=== PATIENT | female | born 1945 | race Caucasian/White ===

== ENCOUNTER → 2016-05-17 | Outpatient (CLI) | payer OTHER | LOC: BHFA 14:30 | PROVIDERS: ATTEND Internal Medicine Cardiovascular Disease | DX: I47.1 Supraventricular tachycardia (principal) ==

== ENCOUNTER 2016-06-11 06:59 | Observation (INO) | payer OTHER ==
[2016-06-11] MEDS ORDERED: MIDAZOLAM 2 MG/2 ML VIAL IVP ONE (07:02)
[2016-06-11] MEDS ORDERED: NS 1,000 ML IV ONE (07:02)
--- NOTE | 2016-06-11 07:25 | CPEKG ---
Heart Rate: 60 RR Interval: 1000 P-R Interval: 164 QRSD Interval: 118 QT Interval: 444 QTC Interval: 444 P [place]: 61 QRS [place]: 65 T Wave [place]: -1 EKG Severity - ABNORMAL ECG - EKG Impression: SINUS RHYTHM EKG Impression: Incomplete RBBB EKG Impression: Nonspecific inferolateral STT changes Electronically Signed By: Carlos Vincent 11-Jun-2016 14:42:06
[2016-06-11 07:46] LABS: % IMMATURE GRANULYOCYTES 0.3 % (0.0-1.1); ABSOLUTE IMMATURE GRANULOCYTES 0.02 10^3/uL (0.00-0.10); ADD DIFF? NO; ADD MORPH? NO; ADD SCAN? NO; ATYPICAL LYMPHOCYTE FLAG 10 (0-99); FRAGMENT RBC FLAG 0 (0-99); HEMATOCRIT 39.5 % (38.0-47.0); HEMOGLOBIN 13.4 g/dL (12.6-16.3); LEFT SHIFT FLG 0 (0-99); LIPEMIA HEMOLYSIS FLAG 90 (0-99); MEAN CELL HEMOGLOBIN 31.1 pg (27.9-34.1); MEAN CELL HEMOGLOBIN CONCENTR. 33.9 g/dL (32.4-36.7); MEAN CELL VOLUME 91.6 fL (81.5-99.8); MEAN PLATELET VOLUME 10.4 fL (8.7-11.7); PLATELET CLUMPS FLAG 10 (0-99); PLATELET COUNT 169 10^3/uL (150-400); RED BLOOD CELL COUNT 4.31 10^6/uL (4.18-5.33); RED CELL DISTRIBUTION WIDTH 12.3 % (11.5-15.2)
[2016-06-11 07:58] LABS: APTT 25.1 SEC (23.0-38.0); INR 1.02 (0.83-1.16); PROTIME(PATIENT) 13.3 SEC (12.0-15.0)
[2016-06-11 08:04] LABS: ANION GAP 6 mEq/L (8-16); CARBON DIOXIDE 28 mEq/l (22-31); CHLORIDE 106 mEq/L (97-110); CREATININE 0.8 mg/dL (0.6-1.0); GLOMERULAR FILTRATION RATE > 60; GLUCOSE 84 mg/dL (70-100); MAGNESIUM 1.8 mg/dL (1.6-2.3); POTASSIUM 3.8 mEq/L (3.5-5.2); SODIUM 140 mEq/L (134-144)
[2016-06-11] MEDS ORDERED: ISOPROTERENOL HCL 0.2 MG/ML 5ML AMP ONE (08:13)
[2016-06-11] MEDS ORDERED: LIDOCAINE 1% 30 ML SDV ONE (08:13)
[2016-06-11] MEDS ORDERED: BUPIVACAINE 0.5% 30 ML SDV ONE (08:13)
[2016-06-11] MEDS ORDERED: DEXAMETHASONE 4 MG/ML VIAL ONE ×2 (09:17→09:19)
[2016-06-11] MEDS ORDERED: ONDANSETRON 4 MG/2 ML VIAL ONE (09:17)
[2016-06-11] MEDS ORDERED: fentaNYL 100 MCG/2 ML INJ ONE (09:17)
[2016-06-11] MEDS ORDERED: PROPOFOL/EMULSION 500 MG/50 ML BOTTLE IV ONE ×2 (09:17→10:41)
[2016-06-11] MEDS ORDERED: ROCURONIUM 50 MG/5 ML VIAL ONE (09:17)
[2016-06-11] MEDS ORDERED: HEPARIN 10,000 UNIT/10 ML MDV ONE (09:40)
[2016-06-11] MEDS ORDERED: PHENYLEPHRINE HCL 100 MCG/ML SYR ONE (09:58)
[2016-06-11] MEDS ORDERED: NEOSTIGMINE METHYLSULFATE 5 MG/5 ML SYR ONE (11:38)
[2016-06-11] MEDS ORDERED: GLYCOPYRROLATE 0.2 MG/1 ML VIAL ONE (11:38)
[2016-06-11] MEDS ORDERED: ACETAMINOPHEN 325 MG TAB PO PRN (11:53)
[2016-06-11] MEDS ORDERED: OXYCODONE/APAP 5/325 TAB PO PRN (11:53)
[2016-06-11] MEDS ORDERED: ONDANSETRON 4 MG/2 ML VIAL IVP PRN (11:53)
[2016-06-11] MEDS ORDERED: ATROPINE SULFATE 1 MG/10 ML SYR ONE (12:08)
[2016-06-11 12:49] LABS: ANION GAP 10 mEq/L (8-16); CALCIUM 7.8 mg/dL (8.5-10.4); CARBON DIOXIDE 24 mEq/l (22-31); CHLORIDE 112 mEq/L (97-110); CREATININE 0.7 mg/dL (0.6-1.0); GLOMERULAR FILTRATION RATE > 60; GLUCOSE 121 mg/dL (70-100); MAGNESIUM 1.7 mg/dL (1.6-2.3); POTASSIUM 3.8 mEq/L (3.5-5.2); SODIUM 146 mEq/L (134-144)
--- NOTE | 2016-06-11 12:57 | CPEKG ---
Heart Rate: 63 RR Interval: 952 P-R Interval: 160 QRSD Interval: 148 QT Interval: 504 QTC Interval: 517 P [place]: 71 QRS [place]: 72 T Wave [place]: -36 EKG Severity - ABNORMAL ECG - EKG Impression: SINUS RHYTHM EKG Impression: RIGHT BUNDLE BRANCH BLOCK Electronically Signed By: Carlos Vincent 11-Jun-2016 14:42:12
--- NOTE | 2016-06-11 14:43 | EPPROC ---
Electrophysiology Procedure Note: ELECTROPHYSIOLOGIC STUDY AND CATHETER MEDIATED ABLATION OF SLOW/FAST AV NEO REENTRY TACHYCARDIA PROCEDURES PERFORMED: 72577-90 EP evaluation with RA/RV/LA pace/record, with arrhythmia induction 46675-01 EP evaluation with RA/RV pace record, insert/reposition catheter, with arrhythmia induction 24785 Intracardiac catheter ablation, SVT arrhythmogenic focus 92196 3D mapping Fluoroscopy INDICATION: SVT PROCEDURE: Catheters & Anesthesia: The patient arrived in the Electrophysiology Laboratory in the fasting state. The right clavicular region, right groin, and left groin area were prepped and draped in the usual sterile manner. Anesthesiologist Dr. Yobani Blood administered general anesthesia. Appropriate non-invasive blood pressure, pulse oximetry and end-tidal CO2 monitoring was established. All catheters were placed percutaneously using the modified Seldinger technique , and advanced into position under fluoroscopic guidance. One #6 [place] hexapolar non-deflectable electrode catheter was inserted into the right atrial appendage via the left femoral vein (2mm spacing; except the proximal ring which was 25cm from the tip - used for unipolar recordings). One #7 [place] deflectable octapolar electrode catheter was advanced to the His-bundle position via the left femoral vein (2mm spacing). One #7 [place] deflectable quadrapolar catheter was advanced to the anteroseptal right ventricle via the right femoral vein. One #7 [place] deflectable catheter with 10 pairs of electrodes was placed via the right femoral vein into the coronary sinus. Heparin was given to keep ACT > 200 s. Programmed stimulation was performed from the right atrium, right ventricle and coronary sinus (left atrium). Parahisian pacing demonstrated constant H-A interval with changing V-A intervals and stimulus-A intervals during capture and loss of capture of proximal RBB proving retrograde conduction over AV node. AVNRT was induced during infusion of isoproterenol 4 mcg/min. Ventricular extrastimuli delivered during tachycardia without altering antegrade His bundle activation did not advance next atrial potential, indicating that the tachycardia was not utilizing an accessory pathway for retrograde conduction. VA interval was 10 ms. Post entrainment of the tachycardia from the ventricle, there was VAHV response. Mapping of the right atrium and coronary sinus during AVNRT identified earliest atrial activation above the tendon of [place] at a level slightly posterior to the level of the His bundle, consistent with retrograde conduction over the fast AV neo pathway. A #8 [place]i deflectable quadrapolar electrode catheter (2mm-5mm-2mm spacing) with 4 mm tip electrode and sensor for the 3D mapping Carto system was advanced to the right atrium. 3 D mapping of the inter-atrial septum and coronary sinus was performed and location of the AV node was marked. A SL2 sheath was used. RF applications were delivered to the region between the tricuspid annulus and the coronary sinus ostium, at the level of the upper edge of the coronary sinus ostium. Radiofrequency applications were also delivered along the roof of the proximal coronary sinus. Junctional rhythm occurred during all of the RF applications. However slow AV neo pathway was still present. 6 mm cryo catheter was placed in the sheath and advanced to the RA. Cryoapplications were delivered to the low midseptal TA. Cryo lesions were abbreviated due to prolongation of AH interval. Cryoapplications 7, total time 636 s. Post cryoablation, slow AV neo pathway was not present. The catheters were removed. The long sheath was changed to a short 9 Fr sheath. The patient was transferred to the cardiovascular holding area in stable condition. Vascular access sheaths were removed in the holding area. There were no apparent complications. Results: A. Spontaneous Intervals: Pre ablation SCL 1070 ms AH 75 ms HV 35 ms Post ablation SCL 950 ms AH 75 ms HV 35 ms B. Antegrade AV neo function (decremental pacing) Pre ablation FPERP 420 ms WBB CL 410 ms Slow prolongation of AH to 280 ms Post ablation FPERP 450 ms WBB CL 440 ms C. Retrograde AV neo function (decremental pacing) Pre ablation FPERP 360 ms WBB CL 350 ms D. Arrhythmias: Sustained slow/fast AVNRT Cycle length 380 ms, AH interval 280 ms, PINEDA interval 100 ms VA interval 10 ms CONCLUSIONS 1. 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 ( Slow/fast AVNRT). 2. Successful ablation (radiofrequency and cryo ablation) of the slow AV neo pathway with elimination of 1:1 antegrade conduction over the slow AV neo pathway, all retrograde conduction over the slow AV neo pathway and the inducibility of AVNRT. 3. No complications. Patient Problems: Problems Problem Status Diagnosed Supraventricular tachycardia Acute Osteoarthritis of right knee Acute
[2016-06-11] MEDS ORDERED: ATORVASTATIN CALCIUM 10 MG TAB PO SCH (21:00)
[2016-06-11] MEDS ORDERED: LATANOPROST 0.005% 2.5 ML OPHT DROPS EACHEYE SCH (21:00)
[2016-06-11 23:01] VITALS: RESP 16; TEMP 97.6
[2016-06-12 06:19] LABS: CREATINE KINASE-MB FRACTION 1.71 ng/mL (0-3.19); TROPONIN I 0.579 ng/mL (0-0.034)
[2016-06-12 06:58] LABS: % IMMATURE GRANULYOCYTES 0.2 % (0.0-1.1); ABSOLUTE IMMATURE GRANULOCYTES 0.03 10^3/uL (0.00-0.10); ADD DIFF? NO; ADD MORPH? NO; ADD SCAN? NO; ATYPICAL LYMPHOCYTE FLAG 0 (0-99); FRAGMENT RBC FLAG 10 (0-99); HEMATOCRIT 34.6 % (38.0-47.0); HEMOGLOBIN 11.7 g/dL (12.6-16.3); LEFT SHIFT FLG 0 (0-99); LIPEMIA HEMOLYSIS FLAG 90 (0-99); MEAN CELL HEMOGLOBIN CONCENTR. 33.8 g/dL (32.4-36.7); MEAN CELL VOLUME 94.5 fL (81.5-99.8); MEAN PLATELET VOLUME 11.1 fL (8.7-11.7); PLATELET CLUMPS FLAG 10 (0-99); PLATELET COUNT 171 10^3/uL (150-400); RED BLOOD CELL COUNT 3.66 10^6/uL (4.18-5.33); RED CELL DISTRIBUTION WIDTH 12.5 % (11.5-15.2)
[2016-06-12 07:37] VITALS: BP 124/61; PULSE 64; O2SAT 94
[2016-06-12 07:58] LABS: ANION GAP 6 mEq/L (8-16); CALCIUM 8.6 mg/dL (8.5-10.4); CARBON DIOXIDE 24 mEq/l (22-31); CHLORIDE 110 mEq/L (97-110); CREATININE 0.7 mg/dL (0.6-1.0); GLOMERULAR FILTRATION RATE > 60; GLUCOSE 120 mg/dL (70-100); POTASSIUM 4.5 mEq/L (3.5-5.2); SODIUM 140 mEq/L (134-144)
[2016-06-12 08:27] LABS: PROTIME(PATIENT) 13.7 SEC (12.0-15.0)
[2016-06-12 08:28] LABS: INR 1.06 (0.83-1.16)
--- NOTE | 2016-06-12 08:47 | CPEKG ---
Heart Rate: 61 RR Interval: 984 P-R Interval: 152 QRSD Interval: 108 QT Interval: 420 QTC Interval: 423 P [place]: 58 QRS [place]: 60 T Wave [place]: -45 EKG Severity - BORDERLINE ECG - EKG Impression: SINUS RHYTHM EKG Impression: BORDERLINE T ABNORMALITIES, DIFFUSE LEADS Electronically Signed By: Carlos Vincent 12-Jun-2016 08:59:09
[2016-06-12] MEDS ORDERED: CHOLECALCIFEROL VIT D3 1,000 UNITS TAB PO SCH (09:00)
[2016-06-12] MEDS ORDERED: CALCIUM CARB W/VIT D 500 MG TAB PO SCH (09:00)
[2016-06-12] MEDS ORDERED: [UNRECOGNIZED DRUG - OTHER] PO SCH (09:00)
[2016-06-12] MEDS ORDERED: VITAMIN D3 PO SCH (09:00)
[2016-06-12] MEDS ORDERED: ESTROGENS,CONJUGATED 0.625 MG TAB PO SCH (09:00)
[2016-06-12] MEDS ORDERED: CALCIUM CARBONATE PO SCH (09:00)
[2016-06-12] MEDS ORDERED: ASPIRIN 81 MG CHEWABLE TAB PO SCH (09:00)
--- NOTE | 2016-06-12 09:58 | ECHO ---
[id number] + + [id number] : : [place] [address] : : [phone] + + Adult Echocardiographic Report + -------+ :Name: FAWAD MULLEN EStudy Date: 06/12/2016 09:11 AM BP: 124/61 mmH g : : Hospital Admission Number: [id number] Locati on: 203: :: 1945 Gender: Female Height: 66 in : :Age: 71 yrs Race: WH Weight: 144 lb : :Reason For Study: S/P ablation : : BSA: 1.7 meter s2 : :History: s/p ablation : + -------+ MMode/2D Measurements \T\ Calculations IVSd: 0.93 cm RVDd: 2.8 cm FS: 31.5 % Ao root diam: LVPWd: 0.86 cm LVIDd: 4.0 cm EDV(Teich): 68.0 ml 2.6 cm LVIDs: 2.7 cm ESV(Teich): 27.2 ml LA dimension: EF(Teich): 60.0 % 3.2 cm LVOT diam: 1.8 cmLVLd ap4: 8.0 cm SV(MOD-sp4): LVOT area: EDV(MOD-sp4): 67.0 ml 2.7 cm2 99.0 ml LVLs ap4: 6.6 cm ESV(MOD-sp4): 32.0 ml EF(MOD-sp4): 67.7 % Normal Measurement Values: + + :LVIDd (3.5-5.7cm) IVSd (0.6-1.1cm) LVPWd (0.6-1.1cm) Aortic Root (2.0-3.7cm)Left Atrium (1.5-4.0cm): :LV Vol(d) (76-115ml) LV Vol(s) (29-48ml) Ejec Fraction (50-65%)PV Eric (0.6- 1.2m/s) TV Eric (0.4-1.0m/s) : :MV E Eric (0.8-1.0m/s)MV A Eric (0.3-1.0m/s)LVOT Eric (0.7-1.2m/s) Asc Ao Eric ( 0.9-1.8m/s) : + + Doppler Measurements \T\ Calculations MV E max eric: Ao V2 max: LV V1 max: PA V2 max: 72.1 cm/sec 149.9 cm/sec 86.4 cm/sec 82.8 cm/sec MV A max eric: Ao max P.0 mmHgLV V1 max PG: PA max P.6 cm/sec TAMICA(V,D): 1.5 cm2 3.0 mmHg 2.7 mmHg MV E/A: 1.1 MV dec time: 0.27 sec TR max eric: 195.9 cm/sec TR max P.3 mmHg Left Ventricle The left ventricle is normal in size and function. There is normal left ventricular wall thickness. Ejection Fraction = 60-65%. No regional wall motion abnormalities noted. Right Ventricle The right ventricle is normal in size and function. Atria The left atrium is borderline dilated. The Left Atrial Volume is 31 ml/m2. Right atrial size is normal. There was no clot seen in the IVC. Mitral Valve The mitral valve is normal in structure and function. There is no mitral valve stenosis. There is trace to mild mitral regurgitation. Tricuspid Valve The tricuspid valve is normal in structure and function. There is no tricuspid stenosis. There is trace to mild tricuspid regurgitation. Right ventricular systolic pressure is 15mmHg. Aortic Valve The aortic valve is trileaflet. There is mild aortic valve calcification. There is no aortic stenosis. There is no aortic insufficiency. Pulmonic Valve The pulmonic valve is normal in structure and function. There is no pulmonic valvular regurgitation. Great Vessels The aortic root is normal size. Pericardium/Pleural trivial pericardial effusion. Conclusion A two-dimensional transthoracic echocardiogram with M-mode and Doppler was performed. The left ventricle is normal in size and function. Ejection Fraction = 60-65%. The left atrium is borderline dilated. The Left Atrial Volume is 31 ml/m2. There was no clot seen in the IVC. There is trace to mild mitral regurgitation. There is trace to mild tricuspid regurgitation. Right ventricular systolic pressure is 15mmHg. trivial pericardial effusion. Final Reading Physician: Toyin Trevino signed on 06/12/2016 09:58 AM Ordering Physician: Carlos Vincent Performed By: Brittany Francois
--- NOTE | 2016-06-12 20:16 | GDS ---
[f rep st] DISCHARGE SUMMARY ADMISSION DIAGNOSES: 1. Paroxysmal supraventricular tachycardia. 2. Hyperlipidemia. DISCHARGE DIAGNOSES: 1. Paroxysmal supraventricular tachycardia. 2. 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 3. Hyperlipidemia. PROCEDURES DURING HOSPITALIZATION: 1. Electrocardiogram. 2. Electrophysiology study. 3. Ablation of AVNRT of the slow AV fito pathway eliminating one-to-one antegrade conduction over the slow AV fito pathway. 4. Echocardiogram. BRIEF HISTORY: Please see H and P. The patient is a 71-year-old female who reports history of palp itations since age 22. She had 2 episodes in the last 2 years, with no specific triggers, episodes had lasted up to 2 hours in duration, 2 of which requiring adenosine for cardioversion. She was gordno luated by her primary heating equipment installer, Dr. Schmitz, who referred her to Dr. Vincent, electrophysiology [facility], for evaluation. Reviewing the data, it was felt that the patient would be an adequate radha te for electrophysiology study and possible ablation. HOSPITAL COURSE: Patient was admitted to [facility], prepped for procedure and taken to the electrophysiol ogy suite. There she underwent electrophysiology study, which Dr. Vincent was able to identify a slow p athway. Successful ablation of the AVNRT, no complications. She was transferred back to the CVC an d ultimately to the PCU for overnight observation. Patient reports this morning no overnight compli cations. Denies any lightheadedness palpitations, chest pain, shortness of breath. She has been up and walking in the unit without any difficulties. No bleeding complications at access site, right groin site. PHYSICAL EXAMINATION: Done today. GENERAL APPEARANCE: Medium built, well-groomed, femal e. She is alert oriented to person, place, time, situation. Appears to be under no acute distress. VITAL SIGNS: Current blood pressure is 124/64, heart rate 64, sinus rhythm on the monitor. Overn ight she remained in sinus rhythm with rare premature ventricular contractions. No other malignant arrhythmias noted. Respirations are 16, saturating 94% on room air. Temperature of 36.4 degrees Ce lsius. HEENT: Head is normocephalic. Lips and tongues are pink and moist with no signs cyanosis. Conjunctivae pink. NECK: Trachea is midline, +2 carotid pulses bilateral. No auscultated bruits, no jugular vein distention. RESPIRATORY: Lungs clear to auscultation. No rhonchi, rales or wheez es. No accessory muscle use. No intercostal muscle retraction. CARDIAC: Regular rate, regular rh ythm, S1, S2. No S3, S4 noted. ABDOMEN: Soft, nontender. Bowel sounds x4 quadrants. No organome natasha and no palpable masses. SKIN: [place], warm, dry. No cyanosis, no clubbing, no peripheral edema . VASCULAR: +2 carotids bilateral, +2 radials bilateral, +1 dorsal pedal and posterior tibial puls es bilateral. Groin site, right catheter insertion site, right groin, no redness, swelling, drainag e, ecchymosis or hematoma noted. NEURO: Cranial nerves 2-12 grossly intact. LABORATORY STUDIES: Drawn today showed WBC of 12.11, hemoglobin 11.7, hematocrit of 34.6, platelet count 171. INR 1.0. Sodium 140, potassium 4.5, chloride 110, CO2 of 24, BUN 15, creatinine 0.7, gl ucose 120, calcium 8.6 noted postoperatively. Her magnesium was 1.7 in the morning. Cardiac enzyme s showed CK of 50, CK-MB of 1.7, troponin of 0.579. Expected to have elevated cardiac enzymes post electrophysiology with ablation procedure. Morning electrocardiogram showed sinus rhythm with borderline T-wave abnormalities in multiple leads . Echocardiogram done this morning showed normal LV size and function, EF of 60% to 65%, LA was bor derline dilated, no clot seen in IVC, trace to mild MR, trace to mild TR, RVSP was estimated at 15 m mHg. Trivial pericardial effusion. DISCHARGE DISPOSITION: Patient will be discharged home in stable condition. She is under activity restrictions of not lifting more than 10 pounds for the next week and no strenuous activity for the next 2 weeks. DISCHARGE MEDICATIONS: lease see discharge medication reconciliation sheet. The patient will be go ing home on aspirin therapy of 81 mg p.o. daily, along with all of her regular home medications. DISCHARGE INSTRUCTIONS: Post electrophysiology discharge instructions went over with the patient an d her , including activity restrictions, monitoring for signs of infection, bleeding precauti ons, medication compliance, thrombotic risk prevention (for every 35-45 minutes of sitting, she is s upposed to get up and walk for 5-10 minutes for the next 6 weeks while awake), and followup instruct ions. She needs to call her primary heating equipment installer, Dr. Schmitz, and see him in the next 2 weeks. Sh noah has a followup appointment set up to see Dr. Vincent in 1 month's time. At the time of discharge, the patient and both verbalized understanding. They have been told that if any problems or con cerns after being discharged, they are to call our office, of their primary heating equipment installer office, or return to the hospital. Total time spent on discharge greater than 30 minutes. /[id number]/MODL
== END 2016-06-12 12:26 | disposition home or self-care (01) ==
LOC: FCATH 06:59 → F2W 11:53
PROVIDERS: ADMIT Internal Medicine Cardiovascular Disease; ATTEND Internal Medicine Cardiovascular Disease
PROC: 02563ZZ Destruction of Right Atrium, Percutaneous Approach (ICD-10-PCS; principal; 2016-06-11)
DX: I47.1 Supraventricular tachycardia (principal); E78.5 Hyperlipidemia, unspecified; I45.19 Other right bundle-branch block
CPT/HCPCS: 93005; 93306; 93613; 93621; 93623; 93653; C1730; C1731; C1732; C1893; J1100; J1644; J2250; J2370; J2405; J2704; J2710; J3010; J0461

== ENCOUNTER 2016-06-14 16:57 | Emergency (ER) | payer OTHER ==
--- NOTE | 2016-06-14 17:08 | EDPHY ---
H & P - Personal History Tetanus Vaccine Date: 2008 - Medical/Surgical History Hx Asthma: No Hx Chronic Respiratory Disease: No Hx Diabetes: No Hx Cardiac Disease: No Hx Renal Disease: No Hx Cirrhosis: No Hx Alcoholism: No Hx HIV/AIDS: No Hx Splenectomy or Spleen Trauma: No Other PMH: cholesterol, glaucoma, AVNRT, hysterectomy, Fx pelvis, Right knee makoplasty, Left hip replacement - Social History Smoking Status: Never smoked Time Seen by Provider: 06/14/16 17:04 HPI/ROS: Chief complaint: Rash on both legs History of present illness: This is a 71-year-old female who presents to the emergency department for evaluation of a rash on both of her legs. Patient reports the onset of symptoms approximately 2 hours ago. She states symptoms are slowly worsening. She denies associated signs or symptoms including no discomfort with the rash such as itching or pain. She denies abnormal coolness or paresthesias in the leg. No difficulty walking. Further she denies fevers, chest pain, trouble breathing or cough. She is wondering if this is related to her sitting in the sun today. She concerned this may be related to a cardiac ablation she had 3 days ago. Review of systems: A 10 point review of systems was obtained and other than described above was negative (Clayton Hernandez) - Physical Exam Exam: General Appearance: Alert, nontoxic. Eyes: Pupils equal and round no injection. Respiratory: Chest is non tender, lungs are clear to auscultation. Cardiac: regular rate and rhythm Gastrointestinal: Abdomen is soft and non tender, no masses, bowel sounds normal. Musculoskeletal: Neck is supple and non tender. Extremities have full range of motion and are non tender. Skin: Erythematous reticular pattern rash on the anterior surface of both legs. Petechia, no pustules, no vesicles. No tenderness to palpation. No warmth. No red streaking. Insertion sites for cardiac ablation appear to be healing well. (Clayton Hernandez) Constitutional: Initial Vital Signs Temperature (C) 36.6 C 06/14/16 17:00 Heart Rate 69 06/14/16 17:00 Respiratory Rate 14 06/14/16 17:00 Blood Pressure 178/143 H 06/14/16 17:00 O2 Sat (%) 98 06/14/16 17:00 O2 Delivery Mode Room Air Allergies/Adverse Reactions: No Known Allergies Allergy (Verified 09/02/13 21:53) Home Medications: Medication Instructions Recorded Atorvastatin Calcium [Lipitor 10 10 mg PO HS 11/09/13 mg (*)] Calcium Carbonate/Vitamin D3 1 each PO DAILY 11/09/13 [Calcium 500-Vit D3 200 Tablet] Estrogens,Conjugated [Premarin 0.625 mg PO DAILY 11/09/13 0.625 MG (*)] Latanoprost 0.005% [Xalatan 0.005% 1 drop EACHEYE HS 11/09/13 (*)] Aspirin EC [Aspirin EC 81 mg (*)] 81 mg PO HS 06/11/16 Cholecalciferol Vit D3 [Vitamin D3 1,000 units PO DAILY 06/11/16 (*)] Acetaminophen [Tylenol 325mg (*)] 325 - 650 mg PO Q4HRS PRN #0 tab 06/12/16 Medical Decision Making ED Course/Re-evaluation: I was asked by GEORGE Hernandez to see this patient. I reviewed the history that the patient had an ablation with bilateral groin punctures 3 days ago. She said in the son today as her had just purchased a [employer] act. She was sitting in the sun with blue jeans on for about 45 minutes and felt that her legs were getting quite hot. She came in to put some cool compresses on realize that she had a rash. The rash is without symptoms. It is not itchy or painful. She has no other systemic signs or symptoms. The exam shows a honeycomb, reticular type pattern of erythema on the sun- exposed part of her right and left thighs. Around the sides and back where the son was not hitting her there is no rash. Otherwise heart long abdomen exams are normal the puncture sites in both groins appear normal without hematoma or evidence of infection. I suspect that this is probably a reaction to the sun and heat through her blue jeans. I have considered allergic reaction, cellulitis, complications of her recent ablation. The patient does not look ill. (Corey Parker) Patient seen in conjunction with my secondary supervising physician Dr. Corey Parker. Patient presents to the emergency department for rash. She is nontoxic. Blood studies are unremarkable. We have discussed with patient it is not clear as to the cause of the rash. However we do not believe further emergency department intervention or inpatient management is warranted. Patient is discharged home. Symptomatic care at home is discussed. She is asked to follow up with her primary care doctor tomorrow for recheck. She also understands she needs to have a blood pressure recheck by her primary care doctor. Strict return precautions are given. Patient voiced understanding and agreement with plan. (Clayton Hernandez) - Data Points Laboratory Results: Laboratory Results 06/14/16 17:15 17 17:15 17 06/14/16 17:15 17:15 WBC 8.27 10^3/uL 10^3/uL (3.80-9.50) RBC 4.40 10^6/uL 10^6/uL (4.18-5.33) Hgb 14.0 g/dL g/dL (12.6-16.3) Hct 41.3 % % (38.0-47.0) MCV 93.9 fL fL (81.5-99.8) MCH 31.8 pg pg (27.9-34.1) MCHC 33.9 g/dL g/dL (32.4-36.7) RDW 12.4 % % (11.5-15.2) Plt Count 186 10^3/uL 10^3/uL (150-400) MPV 10.5 fL fL (8.7-11.7) Neut % (Auto) 53.7 % % (39.3-74.2) Lymph % (Auto) 31.3 % % (15.0-45.0) [place] % (Auto) 11.7 % % (4.5-13.0) Eos % (Auto) 2.7 % % (0.6-7.6) Baso % (Auto) 0.5 % % (0.3-1.7) Nucleat RBC Rel Count 0.0 % % (0.0-0.2) Absolute Neuts (auto) 4.44 10^3/uL 10^3/uL (1.70-6.50) Absolute Lymphs (auto) 2.59 10^3/uL 10^3/uL (1.00-3.00) Absolute Monos (auto) 0.97 10^3/uL H 10^3/uL (0.30-0.80) Absolute Eos (auto) 0.22 10^3/uL 10^3/uL (0.03-0.40) Absolute Basos (auto) 0.04 10^3/uL 10^3/uL (0.02-0.10) Absolute Nucleated RBC 0.00 10^3/uL 10^3/uL (0-0.01) Immature Gran % 0.1 % % (0.0-1.1) Immature Gran # 0.01 10^3/uL 10^3/uL (0.00-0.10) Sodium 139 mEq/L mEq/L (134-144) Potassium 4.7 mEq/L mEq/L (3.5-5.2) Chloride 103 mEq/L mEq/L (97-110) Carbon Dioxide 29 mEq/l mEq/l (22-31) Anion Gap 7 mEq/L L mEq/L (8-16) BUN 17 mg/dL mg/dL (7-23) Creatinine 0.8 mg/dL mg/dL (0.6-1.0) Estimated GFR > 60 Glucose 87 mg/dL mg/dL (70-100) Calcium 9.2 mg/dL mg/dL (8.5-10.4) Departure - Departure Disposition: Home, Routine, Self-Care Clinical Impression: Rash Condition: Good Instructions: Acute Rash (ED) Additional Instructions: Follow-up with her primary care doctor tomorrow for recheck without fail. If symptoms worsen or new symptoms develop return to the emergency department for recheck. Referrals: Marla Saucedo MD [Primary Care Provider] - As per Instructions
[2016-06-14] MEDS ORDERED: NALOXONE HCL 0.4 MG/ML INJ ONE (18:07)
[2016-06-14 18:35] LABS: % IMMATURE GRANULYOCYTES 0.1 % (0.0-1.1); ABSOLUTE IMMATURE GRANULOCYTES 0.01 10^3/uL (0.00-0.10); ADD DIFF? NO; ADD MORPH? NO; ADD SCAN? NO; ATYPICAL LYMPHOCYTE FLAG 10 (0-99); FRAGMENT RBC FLAG 0 (0-99); HEMATOCRIT 41.3 % (38.0-47.0); LEFT SHIFT FLG 0 (0-99); LIPEMIA HEMOLYSIS FLAG 90 (0-99); MEAN CELL HEMOGLOBIN 31.8 pg (27.9-34.1); MEAN CELL HEMOGLOBIN CONCENTR. 33.9 g/dL (32.4-36.7); MEAN CELL VOLUME 93.9 fL (81.5-99.8); MEAN PLATELET VOLUME 10.5 fL (8.7-11.7); PLATELET CLUMPS FLAG 10 (0-99); PLATELET COUNT 186 10^3/uL (150-400); RED CELL DISTRIBUTION WIDTH 12.4 % (11.5-15.2)
[2016-06-14 18:47] LABS: ANION GAP 7 mEq/L (8-16); CALCIUM 9.2 mg/dL (8.5-10.4); CARBON DIOXIDE 29 mEq/l (22-31); CHLORIDE 103 mEq/L (97-110); CREATININE 0.8 mg/dL (0.6-1.0); GLOMERULAR FILTRATION RATE > 60; GLUCOSE 87 mg/dL (70-100); POTASSIUM 4.7 mEq/L (3.5-5.2); SODIUM 139 mEq/L (134-144)
[2016-06-14 18:58] VITALS: BP 180/94; PULSE 60; RESP 16; TEMP 97.7; O2SAT 97
== END 2016-06-14 18:57 | disposition home or self-care (01) ==
DX: R21 Rash and other nonspecific skin eruption (principal); Z79.82 Long term (current) use of aspirin
CPT/HCPCS: 99283; J2310

== ENCOUNTER → 2016-07-11 | Outpatient (CLI) | payer OTHER | LOC: BHFA 15:45 | PROVIDERS: ATTEND Internal Medicine Cardiovascular Disease | DX: I47.1 Supraventricular tachycardia (principal) ==

== ENCOUNTER → 2017-03-25 | Outpatient (CLI) | payer OTHER | LOC: BMCIMAGING 13:33 | PROVIDERS: ATTEND Internal Medicine | DX: Z12.31 Encounter for screening mammogram for malignant neoplasm of breast (principal) | CPT/HCPCS: G0202 ==

== ENCOUNTER → 2018-01-15 | Outpatient (CLI) | payer OTHER | LOC: BMCIMAGING 14:05 | PROVIDERS: ATTEND Orthopaedic Surgery | DX: M16.11 Unilateral primary osteoarthritis, right hip (principal); Z96.641 Presence of right artificial hip joint ==

== ENCOUNTER → 2018-02-03 | Outpatient (CLI) | payer OTHER | LOC: FIMAGING 14:11 | PROVIDERS: ATTEND Orthopaedic Surgery | DX: Z01.818 Encounter for other preprocedural examination (principal); M16.11 Unilateral primary osteoarthritis, right hip ==

== ENCOUNTER 2018-03-03 06:00 | Inpatient (IN) | payer OTHER ==
[~2018-03-03 06:00] MED LIST: ROPIVACAINE 0.2% 80 MG, EPINEPHrine 0.2 MG, KETOROLAC TROMETHAMINE 30 MG, morphINE 10 M... IU ONE; TRANEXAMIC ACID 1,000 MG in NS 100 ML IV ONE
--- NOTE | 2018-03-03 06:40 | PDIAF ---
- Diagnosis Diagnosis: right hip djd Code Status: Full Code - Medication Management Discharge Medications: electronically signed and located in the Home Medication List. - Orders Services needed: Home Care, Physical Therapy Home Care Face to Face: I certify that this patient was under my care and that I had the required [id number] encounter meeting the encounter requirements on the discharge day. My findings support the fact that the patient is homebound as defined in Home Care Face to Face Continued: CMS Chapter 7 Medicare Benefits Manual 30.1.1 , The condition of the patient is such that there exists a normal inability to leave home and consequently, leaving home would require a considerable and taxing effort. Isolation Type: None Diet Recommendation: no restrictions on diet Diet Texture: Regular Texture Diet Additional Instructions: TOTAL JOINT ARTHROPLASTY DISCHARGE INSTRUCTIONS 1. Your surgeon follows the [facility] protocol for reducing your risk of DVT (blood clots) following surgery. Medication will be ordered to prevent blood clots. A sudden increase in calf pain and/or swelling could indicate a blood clot in your leg. If this occurs, please call your surgeon or his/her research assistant professor. An ultrasound of the leg may be necessary to diagnose a blood clot. If you have conditions that make you a higher risk for blood clots, your surgeon may use more aggressive ways to prevent them. Notify your surgeon if you think you are a high risk for blood clots. 2. Wear your white surgical stockings (YESSI hose) for 2 weeks. This decreases your swelling and may help prevent blood clots. It is ok to remove YESSI hose at night time to give your legs a break. 3. Swelling and bruising in the surgical leg is common. If you feel that it is excessive, please notify your surgeon. 4. Elevate your surgical leg with the ankle above the hip several times every day. Please keep the leg straight when you elevate by putting pillows under your foot. Do not put pillows under your knee. This will make being able to fully straighten more difficult. This is uncomfortable, but try to do it as much as possible. 5. For total knee replacements use compressive wrap on your knee for 3-5 days after surgery, then you can discontinue it. 6. Use a walker or crutches for 1-2 weeks. Progress your weight-bearing as tolerated. You may start to use a cane when you feel stable and safe. 7. You will receive physical therapy instructions in the hospital. Continue those exercises at home. There are additional exercises in the total joint booklet you were given before surgery. Outpatient physical therapy will begin 7- 10 days after surgery. Please schedule this in advance. 8. Use ice on your knee at least 3-5 times every day for 30 minutes. This helps reduce pain and swelling. Also use it at night before falling asleep. 9. Leave your surgical dressing in place for 2 weeks. Your dressing is water resistant, but not waterproof. Cover it with Saran Wrap or Snqif-p-Sdue before showering. You may shower as soon as you feel safe entering a shower. If you notice bleeding from your incision 2 or 3 days after surgery, please notify your surgeon. 10. Due to narcotics, decreased activity and altered diet, most patients experience constipation after surgery. Use jkwy-drv-snjwgit stool softeners while you are on narcotics. 11. You may drive a car when you are comfortable bearing weight, have good muscular control of your leg and are off narcotics. This usually occurs 2-4 weeks after surgery, depending on which leg was operated on. 12. If there are questions not addressed here, please refer the [facility] book given for more information. If you still have questions, please contact your surgeon s office. 13. If you have a life-threatening emergency, please call 911 and go to the emergency room immediately. For non-life threatening emergencies, please call your physicians office for advice before going to the emergency room. - Follow Up Care Current Providers and Referrals: Marla Saucedo MD [Primary Care Provider] - Gennaro Perkins MD [Medical Doctor] -
--- NOTE | 2018-03-03 06:40 | PDHPUP ---
History & Physical Update H&P update statement: This history and physical update is based on an assessment of the patient which was completed after admission or registration (within 24 hours), but prior to the surgery/procedure. H&P update: no change in patient's condition since H&P completed
[2018-03-03] MEDS ORDERED: ceFAZolin 1 GM/5 ML SYR ONE (07:03)
[2018-03-03] MEDS ORDERED: ceFAZolin 2 GM/DEXTROSE 100 ML IV ONE (07:10)
[2018-03-03] MEDS ORDERED: ACETAMINOPHEN 325 MG TAB PO ONE (07:10)
[2018-03-03] MEDS ORDERED: FAMOTIDINE 20 MG TAB PO ONE (07:10)
[2018-03-03] MEDS ORDERED: LR 1,000 ML IV ONE (07:11)
--- NOTE | 2018-03-03 07:51 | PDANEPAE ---
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 SLIGHT HYPERLIPIDEMIA. NO CP - Pulmonary History Hx COPD: No Hx Asthma/Reactive Airway Disease: No Hx Recent Upper Respiratory Infection: No Hx Oxygen in Use at Home: No Hx Sleep Apnea: No Sleep Apnea Screening Result - Last Documented: Negative Pulmonary History Comment: DENIES SOB W STAIRS - Neurologic History Hx Cerebrovascular Accident: No Hx Seizures: No Hx Dementia: No - Endocrine History Hx Diabetes: No - Renal History Hx Renal Disorders: No - Liver History Hx Hepatic Disorders: No - Neurological & Psychiatric Hx Hx Neurological and Psychiatric Disorders: No - Cancer History Hx Cancer: Yes Cancer History Comment: CANCER CERVIX - ADENOCARCINOMA- HYSTERECTOMY - Congenital Disorder History Hx Congenital Disorders: Yes Congenital History Comment: AVNRT - GI History Hx Gastrointestinal Disorders: Yes Gastrointestinal History Comment: HX HEMORRHOIDS - Other Health History Other Health History: GLAUCOMA - Chronic Pain History Chronic Pain: No - Surgical History Prior Surgeries: TONSILLECTOMY. PILONIDAL CYST REMOVED. RADICAL HYSTERECTOMY FOR CA CERVIX IN 1985. T TKA 11/16/13 ANE Review of Systems Review of Systems: - Exercise capacity METS (RN): 4 METS ANE Patient History - Allergies Allergies/Adverse Reactions: No Known Allergies Allergy (Verified 02/03/18 11:49) - Home Medications Home Medications: Atorvastatin Calcium [Lipitor 10 mg (*)] 10 mg PO HS 11/09/13 [Last Taken 2 Days Ago ~03/01/18] Estrogens,Conjugated [Premarin 0.625 MG (*)] 0.625 mg PO DAILY 11/09/13 [Last Taken 2 Days Ago ~03/01/18] Latanoprost 0.005% [Xalatan 0.005% (*)] 1 drop EACHEYE HS 11/09/13 [Last Taken 02/28/18] Hydrochlorothiazide [HCTZ (*)] 12.5 mg PO DAILY 01/27/18 [Last Taken 2 Days Ago ~03/01/18] Aleve PRN 02/03/18 [Last Taken 3 Weeks Ago ~02/10/18] - NPO status NPO Since - Liquids (Date): 03/03/18 NPO Since - Liquids (Time): 03:00 NPO Since - Solids (Date): 03/02/18 NPO Since - Solids (Time): 18:30 - Smoking Hx Smoking Status: Never smoked - Family Anes Hx Family Hx Anesthesia Complications: NONE ANE Labs/Vital Signs - Vital Signs Blood Pressure: 144/80 Heart Rate: 62 Respiratory Rate: 14 O2 Sat (%): 94 Height: 168.91 cm Weight: 65.771 kg ANE Physical Exam - Airway Mallampati Score: Class 2 - ASA Status ASA Status: II ANE Anesthesia Plan Anesthesia Plan: GA w LMA, spinal
[2018-03-03] MEDS ORDERED: MIDAZOLAM 2 MG/2 ML VIAL ONE (08:06)
[2018-03-03] MEDS ORDERED: fentaNYL 100 MCG/2 ML INJ ONE ×3 (08:07→10:08)
[2018-03-03] MEDS ORDERED: METOCLOPRAMIDE 10 MG/2 ML VIAL ONE (08:08)
[2018-03-03] MEDS ORDERED: ROCURONIUM 50 MG/5 ML VIAL ONE (08:08)
[2018-03-03] MEDS ORDERED: PROPOFOL 200 MG/20 ML VIAL ONE (08:08)
[2018-03-03] MEDS ORDERED: ONDANSETRON 4 MG/2 ML VIAL ONE (08:08)
[2018-03-03] MEDS ORDERED: LIDOCAINE 2% JELLY 5 ML TUBE ONE (08:14)
[2018-03-03] MEDS ORDERED: METOCLOPRAMIDE 10 MG/2 ML VIAL IVP PRN (09:37)
[2018-03-03] MEDS ORDERED: TEMAZEPAM 15 MG CAP PO PRN (09:37)
[2018-03-03] MEDS ORDERED: MAGNESIUM HYDROXIDE 30 ML UDCUP PO PRN (09:37)
[2018-03-03] MEDS ORDERED: CYCLOBENZAPRINE 10 MG TAB PO PRN (09:37)
[2018-03-03] MEDS ORDERED: LACTULOSE 20 GM/30 ML UDCUP PO PRN (09:37)
[2018-03-03] MEDS ORDERED: PROMETHAZINE HCL 25 MG/ML INJ IVP PRN (09:37)
[2018-03-03] MEDS ORDERED: oxyCODONE IR 5 MG TAB PO PRN (09:37)
[2018-03-03] MEDS ORDERED: ONDANSETRON DISINTEGRATING 4 MG TAB PO PRN (09:37)
[2018-03-03] MEDS ORDERED: BISACODYL 10 MG SUPP PR PRN (09:37)
[2018-03-03] MEDS ORDERED: PROMETHAZINE HCL 25 MG SUPPR PR PRN (09:37)
[2018-03-03] MEDS ORDERED: POLYETHYLENE GLYCOL 3350 17 GM PKT PO PRN (09:37)
[2018-03-03] MEDS ORDERED: DIPHENOXYLATE/ATROPINE LOMOTIL 1 TAB PO PRN (09:37)
[2018-03-03] MEDS ORDERED: ONDANSETRON 4 MG/2 ML VIAL IVP PRN ×2 (09:37→09:57)
[2018-03-03] MEDS ORDERED: diphenhydrAMINE 25 MG CAP PO PRN (09:37)
--- NOTE | 2018-03-03 09:40 | POSTOPPROG ---
Post Op Note Date of Operation: 03/03/18 Surgeon: Gennaro Perkins Cyber Security Specialist: raheem Anesthesiologist: wang Anesthesia: Spinal Pre-op Diagnosis: right hip djd Post-op Diagnosis: same Indication: same Procedure: right maulik Inf/Abcess present in the surg proc area at time of surgery?: No Depth: Deep Incisional (Fascial) EBL: 100-500 Drains: Hemovac
[2018-03-03] MEDS ORDERED: DEXAMETHASONE 4 MG/ML VIAL IVP PRN (09:57)
[2018-03-03] MEDS ORDERED: LR 500 ML IV PRN (09:57)
[2018-03-03] MEDS ORDERED: NALOXONE HCL 0.4 MG/ML INJ IVP PRN (09:57)
--- NOTE | 2018-03-03 09:58 | POSTANESTH ---
Post Anesthetic Evaluation Cardiovascular Status: Normal, Stable Respiratory Status: Normal, Stable Level of Consciousness/Mental Status: Can Participate in Eval Pain Control: Adequate, Prn Tx Ordered Nausea/Vomiting Control: Adequate, Prn Tx Ordered Complications Possibly Related to Anesthesia: None Noted
[2018-03-03] MEDS: fentaNYL 100 MCG/2 ML INJ IVP PRN ×2 (10:10→10:15)
[2018-03-03] MEDS ORDERED: HYDROmorphONE/DILAUDID 2 MG/ML INJ ONE (10:25)
[2018-03-03] MEDS: HYDROmorphONE/DILAUDID 2 MG/ML INJ IVP PRN ×4 (10:25→10:55)
[2018-03-03] MEDS ORDERED: oxyCODONE IR 5 MG TAB ONE (11:11)
[2018-03-03] MEDS: ACETAMINOPHEN 325 MG TAB PO SCH ×3 (13:22→23:25)
[2018-03-03] MEDS: TRANEXAMIC ACID 650 MG TAB PO SCH ×2 (14:30→22:15)
--- NOTE | 2018-03-03 14:54 | ASMTCMCOM ---
CM Note CM Note Notes: Pt is s/p a R ROQUE. PT/OT evals pending. Spoke with pt and her . She has had [facility] in the past and would like to have them again. Referral sent via [employer] and they were notified. D/C Plan: [facility] when medically cleared for home Date Signed: 03/03/2018 02:29 PM Electronically Signed By:RALPH Monsivais
--- NOTE | 2018-03-03 15:00 | PDMN ---
Medical Necessity Medical necessity: 73 yo sp CPT 17505, [facility] [place], [facility] IP Only, R ROQUE
[2018-03-03] MEDS: ceFAZolin 2 GM/DEXTROSE 100 ML IV SCH ×2 (16:04→23:06)
[2018-03-03] MEDS ORDERED: ATORVASTATIN CALCIUM 10 MG TAB PO SCH (21:00)
[2018-03-03] MEDS ORDERED: LATANOPROST 0.005% 2.5 ML OPHT DROPS EACHEYE SCH (21:00)
[2018-03-03] MEDS: SENNOSIDES/DOCUSATE SODIUM TAB PO SCH (22:14)
[2018-03-03] MEDS: FAMOTIDINE 20 MG TAB PO SCH (22:16)
[2018-03-03] MEDS: ASPIRIN 325 MG TAB PO SCH (22:34)
[2018-03-03] MEDS: LR 1,000 ML IV SCH (23:06)
[2018-03-04] MEDS: TRANEXAMIC ACID 650 MG TAB PO SCH (05:41)
[2018-03-04] MEDS: LR 1,000 ML IV SCH (05:55)
[2018-03-04] MEDS: ACETAMINOPHEN 325 MG TAB PO SCH (06:12)
--- NOTE | 2018-03-04 07:35 | SOAPPROG ---
SOAP Progress Note Assessment/Plan: Assessment: s/p maulik Plan:stable d/c home when cleared by pt no bleeding issues dvt precautions reviewed f/u at two weeks d seek attn for increasing pain, leg pain or other focal complaint 03/04/18 07:33 Subjective: doing well no current nausea no cp or sob antwan po Objective: Vital Signs Temp Pulse Resp BP Pulse Ox 36.9 C 62 14 105/60 98 03/04/18 07:24 03/04/18 07:24 03/04/18 07:24 03/04/18 07:24 03/04/18 07:24 Laboratory Results 03/04/18 04:25 03/03/18 03/04/18 03/05/18 05:59 05:59 05:59 Intake Total 1300 400 Output Total 185 Balance 1115 400 dressing intact intact pfd,ehl toes warm and pink neg homans ameena xrays anatomic alignment no fx or lucency ICD10 Worksheet Patient Problems: Problems Problem Status Onset Osteoarthritis of right knee Acute Supraventricular tachycardia Acute
[2018-03-04] MEDS: ASPIRIN 325 MG TAB PO SCH (08:13)
[2018-03-04] MEDS: SENNOSIDES/DOCUSATE SODIUM TAB PO SCH (08:15)
[2018-03-04] MEDS: FAMOTIDINE 20 MG TAB PO SCH (08:15)
[2018-03-04] MEDS ORDERED: ESTROGENS,CONJUGATED 0.625 MG TAB PO SCH (09:00)
[2018-03-04] MEDS ORDERED: HYDROCHLOROTHIAZIDE 12.5 MG CAP PO SCH (09:00)
--- NOTE | 2018-03-04 10:05 | ASMTLACE ---
LACE Length of stay for Answers: 2 days current admission Acuity / Level of Answers: Yes Care: Did the patient have an inpatient admission? Comorbidities - select Answers: Any tumor (including all that apply lymphoma or leukemia) Coronary Artery Disease Other Notes: glaucoma, HTN # of Emergency department Answers: 0 visits in the last 6 months Score: 10 Date Signed: 03/04/2018 10:04 AM Electronically Signed By:RALPH Rowley
--- NOTE | 2018-03-04 10:12 | ASMTCMCOM ---
CM Note CM Note Notes: Pt medically stable for d/c with [facility]. Orders to be obtained via [employer]. Date Signed: 03/04/2018 10:12 AM Electronically Signed By:RALPH Rowley
[2018-03-04 12:09] VITALS: BP 101/58
--- NOTE | 2018-03-04 16:18 | ASDISCHSUM ---
Discharge Information Plan Status:Home with Home Health Medically Cleared to Leave: Discharge Date:03/04/2018 01:22 PM CM D/C Disposition: ADT D/C Disposition:Home Health Service Projected Discharge Date:03/04/2018 11:00 AM Transportation at D/C: Discharge Delay Reason: Follow-Up Date:03/04/2018 11:00 AM Discharge Slot: Final Diagnosis: Placement Information Referral Type:*Home Health Care Services Referral ID:[id number] Provider Name:[facility] Address 1:[address] [facility] [address] Address 2: City:[place] Selection Factors: State:[place] Patient Contact Information Contact Name:CLARITA Relationship: Address:[facility] City:[place] Alternate Phone: State/Zip Code:[place] [address] Email: Financial Information Financial Class:Medicare Primary Plan Desc:MEDICARE INPATIENT Primary Plan Number:[id number] Secondary Plan Desc:[employer] Secondary Plan Number:[id number] Assessment Information LACE LACE Length of stay for Answers: 2 days current admission Acuity / Level of Answers: Yes Care: Did the patient have an inpatient admission? Comorbidities - select Answers: Any tumor (including all that apply lymphoma or leukemia) Coronary Artery Disease Other Notes: glaucoma, HTN # of Emergency department Answers: 0 visits in the last 6 months Score: 10 Date Signed: 03/04/2018 10:04 AM Electronically Signed By:RALPH Rowley SIDNEY CM Progress Note CM Note CM Note Notes: Pt is s/p a R ROQUE. PT/OT malcolm pending. Spoke with pt and her . She has had [facility] in the past and would like to have them again. Referral sent via [email or web address] and they were notified. D/C Plan: [facility] when medically cleared for home Date Signed: 03/03/2018 02:29 PM Electronically Signed By:RALPH Monsivais [facility] CM Progress Note CM Note CM Note Notes: Pt medically stable for d/c with [facility]. Orders to be obtained via [employer]. Date Signed: 03/04/2018 10:12 AM Electronically Signed By:RALPH Rowley Intervention Information
--- NOTE | 2018-03-09 08:35 | GOP ---
DATE OF OPERATION: 03/03/2018 SURGEON: Gennaro Perkins MD DUBBING MACHINE OPERATOR: Guy Dumont, surgical clinical reviewer who was medical necessity for the entirety of the case. PREOPERATIVE DIAGNOSIS: Right hip degenerative joint disease. POSTOPERATIVE DIAGNOSIS: Right hip degenerative joint disease. PROCEDURE PERFORMED: Right total hip arthroplasty. FINDINGS: SPECIMENS: To Pathology, femoral head. INDICATIONS: The patient is a 73-year-old woman is known to me for previous left total hip replaceme nt. She presents for elective right total hip replacement. She has end-stage arthritis. She has fa iled all attempts at conservative management. I have outlined the surgical procedure, risks, benefit s, and alternatives. She wished to proceed. Written consent was signed and placed in patient's ko t. DESCRIPTION OF PROCEDURE: The patient was identified in the preanesthesia area. The right hip clear ly demarcated as the operative site with indelible marker. She was given 2 g of Ancef intravenously in route to the operative suite. In the OR, a spinal anesthetic was placed. She was positioned in t he supine position. The pelvis and both lower extremities were sterilely prepped and draped in usual fashion. Appropriate time-out procedure was carried out. Attention was first turned to the left hemipelvis, a 2 cm incision was made over the iliac crest, 3 p ins were then placed, and the pelvic reference array affixed. Attention was then turned to the right hip, an anterior approach was made. March 09, 2018Thick saunders bcutaneous flaps were elevated. The fascia of the tensor fascia judy was elevated and the muscle ret racted laterally. The underlying vascular structures were identified, ligated, cauterized, and trans ected. The rectus was elevated off the anterior capsule. Retractors were placed in an extracapsular position. A T-capsulotomy was then made. Retractors then placed into an intracapsular position. A n acetabular checkpoint was placed. A bony wedge was withdrawn from the femoral neck and the head wa s removed. The remnants of the acetabular labrum were sharply excised. The bony landmarks were ente red into the computer using the MAKOplasty protocol. A 50 mm reamer was placed with an opening angle of 40 degrees and anteversion 20, reamed to the appropriate depth. A 50 mm Tritanium II shell was t hen impacted, confirmed to be fully seated. A 0-degree X3 liner with 32 mm inner diameter was then p laced, confirmed to be fully seated. Attention was then turned to the femur, which was delivered with use of the extension of the table, s oft tissue releases, and retractors. The proximal canal was opened. Serial broaching was carried ou t to size 3. Intraoperative fluoroscopy was utilized to assess the trial reduction. A 32 mm +0 mm h ead was selected. The trial stem was withdrawn and the final stem impacted to the appropriate depth. 32 mm +0 mm Biolox head was then placed. The hip was copiously irrigated and reduced. This restor ed leg lengths to be equal. Stability profile was acceptable with external rotation and full extensi on to 90 degrees with no subluxation. The wound was copiously irrigated. A 10-Japanese drain was placed to bulb suction. The tissue injecte d with a joint cocktail of ropivacaine, morphine, Toradol, and epinephrine. The tensor closed using 0 Vicryl, subcutaneous tissue using 2-0 Monocryl, and a ZipLine closure of the skin. A sterile press ure dressing was placed over the top of this. Patient was awakened and taken to recovery room in goo d, stable condition. TOTAL TOURNIQUET TIME: None. COMPLICATIONS: None. IMPLANT: [place] Trititanium II acetabular shell 50 mm, Trident X3 0-degree polyethylene insert 32 m m, Accolate II 127 degree neck angle hip stem size 3, Biolox Delta ceramic head 32 mm +0 mm neck jenna th. DISPOSITION: To the recovery room, then to floor. She is weightbearing, anterior hip precautions. /[id number]/MODL
--- NOTE | 2018-03-09 09:25 | GDS ---
ADMISSION DIAGNOSIS: Right hip degenerative joint disease. DISCHARGE DIAGNOSIS: Right hip degenerative joint disease. PROCEDURE: Right total hip arthroplasty. HISTORY OF PRESENT ILLNESS: The patient is a 73-year-old woman who presents electively for right tot al hip replacement. She understands the risks, benefits, alternatives, and wished to proceed. Ashlyn en consent was signed and placed in the patient's chart. HOSPITAL COURSE: She was admitted to the hospital floor after uncomplicated total hip arthroplasty. She quickly progressed with physical therapy. At the time of discharge, she is tolerating an oral d iet, pain is well controlled on oral medicines. She is voiding without difficulty. Dressing is crispin n, dry, and intact. She has been cleared by Physical Therapy. DISCHARGE ACTIVITY: She is weightbearing as tolerated. Range of motion as tolerated, except followi ng anterior hip precautions. May remain with the bandage until followupin 2 weeks. Seek attention f or increasing redness, swelling, or drainage. DISCHARGE MEDICATIONS: Aspirin 325 mg p.o. daily for 6 weeks, oxycodone 5 mg 1 to 2 every 6 hours p. r.n. pain, Zofran 4 mg orally every 8 hours as needed for nausea. FOLLOWUP: At 2 weeks. /[id number]/MODL
== END 2018-03-04 13:22 | disposition home health service (06) | DRG 470 ==
LOC: F3N 06:00
PROVIDERS: ADMIT Orthopaedic Surgery; ATTEND Orthopaedic Surgery
PROC: 0SR904A Replacement of Right Hip Joint with Ceramic on Polyethylene Synthetic Substitute, Uncemented, Open Approach (ICD-10-PCS; principal; 2018-03-03 08:15)
PROC: 8E0Y0CZ Robotic Assisted Procedure of Lower Extremity, Open Approach (ICD-10-PCS; principal; 2018-03-03 08:15)
DX: M16.11 Unilateral primary osteoarthritis, right hip (principal); R93.1 Abnormal findings on diagnostic imaging of heart and coronary circulation; I10 Essential (primary) hypertension; E78.5 Hyperlipidemia, unspecified; H40.9 Unspecified glaucoma; Z96.642 Presence of left artificial hip joint; Z85.41 Personal history of malignant neoplasm of cervix uteri
CPT/HCPCS: 97116-GP; 97161-GP; 97165-GO; 97530-GP; G8978-GP-CL; G8979-GP-CI; G8980-GP-CI; G8987-GO-CI; G8988-GO-CI; G8989-GO-CI; J0171; J0690; J1170; J1885; J2250; J2270; J2405; J2704; J2765; J2795; J3010

== ENCOUNTER → 2018-03-31 | Outpatient (CLI) | payer OTHER | LOC: BMCIMAGING 12:16 | PROVIDERS: ATTEND Internal Medicine | DX: Z12.31 Encounter for screening mammogram for malignant neoplasm of breast (principal); Z80.3 Family history of malignant neoplasm of breast ==

== ENCOUNTER → 2018-04-08 | Outpatient (CLI) | payer OTHER | LOC: BMCIMAGING 13:47 | PROVIDERS: ATTEND Internal Medicine Rheumatology | DX: M19.041 Primary osteoarthritis, right hand (principal); M19.042 Primary osteoarthritis, left hand; M77.31 Calcaneal spur, right foot; M77.32 Calcaneal spur, left foot; M85.671 Other cyst of bone, right ankle and foot; M85.672 Other cyst of bone, left ankle and foot ==

== ENCOUNTER → 2018-04-14 | Outpatient (CLI) | payer OTHER | LOC: BMCIMAGING 10:37 | PROVIDERS: ATTEND Physician Assistant | DX: Z47.1 Aftercare following joint replacement surgery (principal); Z96.643 Presence of artificial hip joint, bilateral ==

== ENCOUNTER → 2018-05-28 | Outpatient (CLI) | payer OTHER | LOC: BMCIMAGING 10:25 | PROVIDERS: ATTEND Orthopaedic Surgery | DX: Z47.1 Aftercare following joint replacement surgery (principal); Z96.641 Presence of right artificial hip joint ==

== ENCOUNTER → 2018-08-25 | Outpatient (CLI) | payer OTHER | LOC: BMCIMAGING 09:40 | PROVIDERS: ATTEND Orthopaedic Surgery | DX: Z47.1 Aftercare following joint replacement surgery (principal); Z96.641 Presence of right artificial hip joint ==